=== PATIENT | male | born 1985 | race Caucasian/White ===

== ENCOUNTER 2018-05-11 09:03 | Emergency (ER) | payer BC, OTHER ==
[2018-05-11 10:08] LABS: Absolute Lymphocytes (CBC) 2.5 K/uL (0.7-4.9); Absolute Monocytes 0.8 K/uL (0.1-1.3); Absolute Neutrophil 4.8 K/uL (1.8-8.0); Basophils % 0.6 % (0-1.3); Eosinophils % 1.5 % (0-4.4); Hematocrit 46.3 % (39.6-49.0); Lymphocytes % 30.3 % (15.3-44.8); MCH 28.7 pg (27.0-35.0); MCV 85.4 fL (80-100); MPV 10.2 fL (7.6-11.3); Monocytes % 9.5 % (3.3-12.3); RBC Red Blood Cell Count 5.41 M/uL (4.33-5.43)
[2018-05-11 10:20] LABS: BUN Blood Urea Nitrogen 22 mg/dL (7-18); Bicarbonate 32 mmol/L (21-32); CKMB Creatine Kinase MB < 1.0 ng/mL (0.3-3.6); Creatine Phosphokinase 104 U/L (39-308); Glucose Level 78 mg/dL (74-106); Magnesium 2.3 mg/dL (1.8-2.4); Potassium 4.1 mmol/L (3.5-5.1); Sodium Level 140 mmol/L (136-145)
--- NOTE | 2018-05-11 10:31 | RAD REPORT ---
EXAM DESCRIPTION: RAD - Chest Single View - 05/11/2018 10:20 am CLINICAL HISTORY: PALPITATIONS Chest pain. COMPARISON: No comparisons FINDINGS: Portable technique limits examination quality. The lungs are grossly clear. The heart is normal in size. No displaced fractures. IMPRESSION: No acute intrathoracic process suspected.
[2018-05-11 11:08] LABS: Urine Blood NEGATIVE (NEG); Urine Glucose NEGATIVE (NEG); Urine Protein NEGATIVE (NEG); Urine pH 6.5 (5.0-7.0)
--- NOTE | 2018-05-11 11:33 | EDPHYS ---
Physician Documentation [facility] Name: Tani Cheng Age: 32 yrs Sex: Male : 1985 Arrival Date: 05/11/2018 Time: 09:08 Bed 17 Private MD: Kishor Quiroz ED Physician Jose Espana HPI: 05/11 10:10 This 32 yrs old Male presents to ER via Ambulatory with complaints of kb IRREGULAR HEARTBEAT. 10:10 The patient presents with a history of irregular heart beat. Context: The symptoms kb occur during sleep, without known cause. Onset: The symptoms/episode began/occurred yesterday. Duration: The patient or guardian reports a single episode, that is now resolved. Modifying factors: The symptoms are aggravated by nothing. The symptoms are alleviated by nothing. Associated signs and symptoms: The patient has no apparent associated signs or symptoms. Severity of symptoms: At their worst the symptoms were mild moderate in the emergency department the symptoms have resolved and did so earlier today. The patient has not experienced similar symptoms in the past. The patient has not recently seen a physician. Pt states he woke up from "fluttering in my chest" yesterday morning. The palpitations continued throughout yesterday and some this morning. States he used his home BP machine to check his pressure and it said he had an irregular heart beat. Now resolved. . Historical: - Allergies: 09:21 No Known Allergies; ss - Home Meds: 09:21 unknown blood pressure medication [Active]; ss - PMHx: 09:21 Hypertension; ss - PSHx: 09:21 None; ss - Immunization history:: Adult Immunizations up to date. - Social history:: Smoking status: Patient/guardian denies using tobacco. - Ebola Screening: : Patient denies exposure to infectious person Patient denies travel to an Ebola-affected area in the 21 days before illness onset. ROS: 10:09 Constitutional: Negative for fever, chills, and weight loss, Respiratory: Negative for kb shortness of breath, cough, wheezing, and pleuritic chest pain, Abdomen/GI: Negative for abdominal pain, nausea, vomiting, diarrhea, and constipation, Back: Negative for injury and pain, : Negative for injury, bleeding, discharge, and swelling, MS/Extremity: Negative for injury and deformity, Skin: Negative for injury, rash, and discoloration, Neuro: Negative for headache, weakness, numbness, tingling, and seizure. 10:09 Cardiovascular: Positive for palpitations, Negative for chest pain, edema, orthopnea, paroxysmal nocturnal dyspnea. Exam: 10:09 Constitutional: This is a well developed, well nourished patient who is awake, alert, kb and in no acute distress. Head/Face: Normocephalic, atraumatic. Chest/axilla: Normal chest wall appearance and motion. Nontender with no deformity. No lesions are appreciated. Cardiovascular: Regular rate and rhythm with a normal S1 and S2. No gallops, murmurs, or rubs. Normal PMI, no JVD. No pulse deficits. Respiratory: Lungs have equal breath sounds bilaterally, clear to auscultation and percussion. No rales, rhonchi or wheezes noted. No increased work of breathing, no retractions or nasal flaring. Abdomen/GI: Soft, non-tender, with normal bowel sounds. No distension or tympany. No guarding or rebound. No evidence of tenderness throughout. Skin: Warm, dry with normal turgor. Normal color with no rashes, no lesions, and no evidence of cellulitis. MS/ Extremity: Pulses equal, no cyanosis. Neurovascular intact. Full, normal range of motion. Neuro: Awake and alert, GCS 15, oriented to person, place, time, and situation. Cranial nerves II-XII grossly intact. Motor strength 5/5 in all extremities. Sensory grossly intact. Cerebellar exam normal. Normal gait. Vital Signs: 09:21 BP 139 / 87; Pulse 87; Resp 16; Temp 97.6(TE); Pulse Ox 99% on R/A; Weight 95.25 kg; ss Height 6 ft. 2 in. (187.96 cm); Pain 0/10; 10:00 BP 117 / 67; Pulse 71; Resp 15; Pulse Ox 98% on R/A; Pain 0/10; rb1 11:00 BP 126 / 79; Pulse 74; Resp 17; Pulse Ox 99% on R/A; tw2 11:41 BP 107 / 72; Pulse 75; Resp 15; Pulse Ox 97% on R/A; tw2 09:21 Body Mass Index 26.96 (95.25 kg, 187.96 cm) MDM: 09:19 Patient medically screened. kb 10:10 Data reviewed: vital signs, nurses notes. Data interpreted: Pulse oximetry: on room air kb is 99 %. Interpretation: normal. 11:14 Counseling: I had a detailed discussion with the patient and/or guardian regarding: the kb historical points, exam findings, and any diagnostic results supporting the discharge/admit diagnosis, lab results, radiology results, the need for outpatient follow up, a driver retraining instructor, a family practitioner, to return to the emergency department if symptoms worsen or persist or if there are any questions or concerns that arise at home. 05/11 09:22 Order name: Basic Metabolic Panel kb 05/11 09:22 Order name: CBC with Diff; Complete Time: 10:13 kb 05/11 09:22 Order name: Ckmb; Complete Time: 10:24 kb 05/11 09:22 Order name: CPK; Complete Time: 10:24 kb 05/11 09:22 Order name: Magnesium; Complete Time: 10:24 kb 05/11 09:22 Order name: Troponin (emerg Dept Use Only); Complete Time: 10:24 kb 05/11 09:22 Order name: XRAY Chest (1 view); Complete Time: 10:37 kb 05/11 09:22 Order name: EKG; Complete Time: 09:23 kb 05/11 09:22 Order name: Cardiac monitoring; Complete Time: 09:59 kb 05/11 09:22 Order name: EKG - Nurse/Tech; Complete Time: 09:36 kb 05/11 09:22 Order name: IV Saline Lock; Complete Time: 09:59 kb 05/11 09:22 Order name: Labs collected and sent; Complete Time: 09:59 kb 05/11 09:22 Order name: Basic Metabolic Panel; Complete Time: 10:24 EDMS 05/11 10:32 Order name: Urine Dipstick--Ancillary (enter results); Complete Time: 11:14 eb 05/11 09:22 Order name: O2 Per Protocol; Complete Time: 09:59 kb 05/11 09:22 Order name: O2 Sat Monitoring; Complete Time: 09:58 kb 05/11 09:22 Order name: Urine Dipstick-Ancillary (obtain specimen); Complete Time: 11:29 kb Administered Medications: No medications were administered Disposition: 16:48 Co-signature as Attending Physician, Jose Espana MD. rn Disposition: 05/11/18 11:32 Discharged to Home. Impression: Palpitations. - Condition is Stable. - Discharge Instructions: Palpitations, [id number]. - Medication Reconciliation Form, Thank You Letter, Antibiotic Education, Prescription Opioid Use form. - Follow up: Emergency Department; When: As needed; Reason: Worsening of condition. Follow up: Private Physician; When: 2 - 3 days; Reason: Recheck today's complaints, Continuance of care, Re-evaluation by your physician. Signatures: Dispatcher [employer] EDMS Sammie Tavera, DIRECTOR VIDEO-C DIRECTOR VIDEO-Ckb Jose Espana MD MD rn Smirch, Shelby, RN RN ss Wise, Tara, RN RN tw2 Corrections: (The following items were deleted from the chart) 11:45 11:32 05/11/2018 11:32 Discharged to Home. Impression: Palpitations. Condition is tw2 Stable. Discharge Instructions: Palpitations, [id number]. Forms are Medication Reconciliation Form, Thank You Letter, Antibiotic Education, Prescription Opioid Use. Follow up: Emergency Department; When: As needed; Reason: Worsening of condition. Follow up: Private Physician; When: 2 - 3 days; Reason: Recheck today's complaints, Continuance of care, Re-evaluation by your physician. kb
--- NOTE | 2018-05-11 11:33 | ER ---
Nurse's Notes [facility] Name: Tani Cheng Age: 32 yrs Sex: Male : 1985 Arrival Date: 05/11/2018 Time: 09:08 Bed 17 Private MD: Kishor Quiroz Diagnosis: Palpitations Presentation: 05/11 09:15 Presenting complaint: Patient states: "yesterday I felt a kind of flutter in my chest ss and I checked my blood pressure and my pulse and my pulse was irregular going from 96-104 bpm" Pt reports he is feeling better today, but he called his doctor who told him to be evaluated in the ER. Transition of care: patient was not received from another setting of care. Onset of symptoms was May 10, 2018. Risk Assessment: Do you want to hurt yourself or someone else? Patient reports no desire to harm self or others. Initial Sepsis Screen: Does the patient meet any 2 criteria? No. Patient's initial sepsis screen is negative. Does the patient have a suspected source of infection? No. Patient's initial sepsis screen is negative. Care prior to arrival: None. 09:15 Method Of Arrival: Ambulatory ss 09:15 Acuity: MARI 3 ss Historical: - Allergies: 09:21 No Known Allergies; ss - Home Meds: 09:21 unknown blood pressure medication [Active]; ss - PMHx: 09:21 Hypertension; ss - PSHx: 09:21 None; ss - Immunization history:: Adult Immunizations up to date. - Social history:: Smoking status: Patient/guardian denies using tobacco. - Ebola Screening: : Patient denies exposure to infectious person Patient denies travel to an Ebola-affected area in the 21 days before illness onset. Screenin:22 Abuse screen: Denies threats or abuse. Denies injuries from another. Nutritional ss screening: No deficits noted. Tuberculosis screening: Never had TB. Fall Risk None identified. Assessment: 09:22 General: Appears in no apparent distress. comfortable, Behavior is calm, cooperative, ss Denies fever, feeling ill, fatigue, chills. Pain: Denies pain. Neuro: Level of Consciousness is awake, alert, obeys commands, Oriented to person, place, time, situation. Cardiovascular: Capillary refill < 3 seconds is brisk in bilateral fingers Pulses are palpable in right radial artery and left radial artery Rhythm is sinus rhythm Chest pain is denied. Cardiovascular: Reports palpitations, that began yesterday, got better during the evening Denies chest pain, fatigue, lightheadedness, nausea, shortness of breath. Respiratory: Airway is patent Respiratory effort is even, unlabored, Denies cough, shortness of breath labored breathing. GI: Patient currently denies diarrhea, nausea, vomiting. : No signs and/or symptoms were reported regarding the genitourinary system. EENT: Nares are clear Oral mucosa is moist. Derm: Skin is intact, is healthy with good turgor, Skin is pink, warm \\T\\ dry. Musculoskeletal: Circulation, motion, and sensation intact. Range of motion: intact in all extremities, Swelling absent. 10:22 Reassessment: Patient appears in no apparent distress at this time. No changes from rb1 previously documented assessment. Pt. c/o feeling pressure. Patient denies pain at this time. 11:20 Reassessment: Patient appears in no apparent distress at this time. Patient and/or rb1 family updated on plan of care and expected duration. Pain level reassessed. Patient is alert, oriented x 3, equal unlabored respirations, skin warm/dry/pink. Vital Signs: 09:21 BP 139 / 87; Pulse 87; Resp 16; Temp 97.6(TE); Pulse Ox 99% on R/A; Weight 95.25 kg; ss Height 6 ft. 2 in. (187.96 cm); Pain 0/10; 10:00 BP 117 / 67; Pulse 71; Resp 15; Pulse Ox 98% on R/A; Pain 0/10; rb1 11:00 BP 126 / 79; Pulse 74; Resp 17; Pulse Ox 99% on R/A; tw2 11:41 BP 107 / 72; Pulse 75; Resp 15; Pulse Ox 97% on R/A; tw2 09:21 Body Mass Index 26.96 (95.25 kg, 187.96 cm) ED Course: 09:08 Patient arrived in ED. sb2 09:09 Kishor Quiroz MD is Private Physician. sb2 09:18 Triage completed. ss 09:18 [facility]C [facility] kb 09:18 Jose Espana MD is Attending Physician. kb 09:21 Arm band placed on right wrist. ss 09:22 Patient has correct armband on for positive identification. Bed in low position. Call light in reach. 09:24 EKG done, by fitness technician. reviewed by Sammie CRABTREE. at1 09:50 Inserted saline lock: 22 gauge in left antecubital area, using aseptic technique. Blood rb1 collected. 09:58 Diane Boykin, RN is Primary Nurse. rb1 10:21 XRAY Chest (1 view) In Process Unspecified. EDMS 11:42 No provider procedures requiring assistance completed. IV discontinued, intact, tw2 bleeding controlled, No redness/swelling at site. Pressure dressing applied. Administered Medications: No medications were administered Outcome: 11:32 Discharge ordered by . kb 11:42 Discharged to home ambulatory. tw2 11:42 Condition: stable 11:42 Discharge instructions given to patient, Instructed on discharge instructions, follow up and referral plans. Demonstrated understanding of instructions, follow-up care. 11:45 Patient left the ED. tw2 Signatures: Dispatcher [employer] EDFL Sammie Tavera, LEYDA OSMAN-Cici Marie, RN RN Sara Reddy, safety sitter EKG Tat1 Diane Boykin, RN RN rb1 Zelda Flores RN RN tw2 Luz Maria Wells sb2
--- NOTE | 2018-05-11 16:29 | EKG ---
Test Date: 2018-05-11 Test Time: 09:24:55 Broke Handler: RICHARD MEASUREMENT RESULTS: Intervals: Rate: 75 ID: [id number] QRSD: 80 QT: 362 QTc: 404 Jenera: P: 71 ID: [id number] QRS: 85 T: 46 INTERPRETIVE STATEMENTS: Normal sinus rhythm Right atrial enlargement Borderline ECG No previous ECG available for comparison Electronically Signed On 05-11-18 16:26:13 CDT by Enoc Mejia
== END 2018-05-11 11:45 | disposition home or self-care (01) ==
LOC: ER 09:03
DX: R00.2 Palpitations (principal); I10 Essential (primary) hypertension
CPT/HCPCS: 36415; 71045; 80048; 81003; 82550; 82553; 83735; 84484; 85025; 93005; 99284